=== PATIENT | male | born 1975 | race African-American/Black ===

== ENCOUNTER 2018-09-26 02:05 | Emergency (ER) | payer OTHER ==
[~2018-09-26] VITALS: Ht 185.4 cm; Wt 97.5 kg
[2018-09-26 03:46] LABS: HEMATOCRIT 41.4 % (42.0-52.0); HEMOGLOBIN 14.1 gm/dL (14.0-18.0); MCH 33.2 pg (26.0-34.0); MCV 97.6 fL (80.0-100.0); RBC 4.24 mil/uL (4.50-6.00); RDW 13.7 % (10.5-14.5); WBC 10.4 thou/uL (4.0-11.0)
[2018-09-26 04:01] LABS: CALCIUM 9.2 mg/dL (8.5-10.1); POTASSIUM 4.2 mmol/L (3.5-5.1)
[2018-09-26] MEDS ORDERED: CLEOCIN HCL300 MG PO (05:42)
[2018-09-26 06:22] VITALS: BP 123/85
== END 2018-09-26 06:28 | disposition home or self-care (01) ==
LOC: ER 02:05
PROVIDERS: Emergency Medicine
DX: K04.7 Periapical abscess without sinus (principal); F17.210 Nicotine dependence, cigarettes, uncomplicated

== ENCOUNTER 2019-02-11 04:47 | Inpatient (IN) | payer OTHER ==
[~2019-02-11] VITALS: Ht 185.4 cm; Wt 88.8 kg
[~2019-02-11 04:47] MED LIST: CLEOCIN HCL300 MG PO
[2019-02-11 04:48] VITALS: BP 123/82
[2019-02-11 05:18] LABS: ABSOLUTE NEUTROPHILS 3.3 thou/uL (1.4-8.2); EOSINOPHILS 1.9 % (0.0-3.0); HEMATOCRIT 45.8 % (42.0-52.0); HEMOGLOBIN 15.8 gm/dL (14.0-18.0); LYMPHOCYTES 36.8 % (24.0-44.0); MCH 34.1 pg (26.0-34.0); MCHC 34.6 g/dL (28.0-37.0); MCV 98.6 fL (80.0-100.0); MONOCYTES 11.5 % (1.0-8.0); PLATELET COUNT 249 thou/uL (150-400); POLYS 47.8 % (36.0-66.0); RBC 4.64 mil/uL (4.50-6.00); RDW 16.3 % (10.5-14.5); WBC 6.9 thou/uL (4.0-11.0)
[2019-02-11 06:04] LABS: URINE BLOOD NEGATIVE (Negative); URINE CLARITY CLEAR; URINE GLUCOSE-RANDOM* NEGATIVE (Negative); URINE KETONES TRACE (Negative); URINE LEUKOCYTES-REFLEX NEGATIVE (Negative); URINE NITRITE-REFLEX NEGATIVE (Negative); URINE PROTEIN (DIPSTICK) 2+ (Negative); URINE SPECIFIC GRAVITY 1.025 (1.005-1.035)
[2019-02-11 06:08] LABS: ICTOTEST (BILI CONFIRMATORY) Negative (Negative); URINE BILIRUBIN NEGATIVE (Negative); URINE COLOR DARK YELLOW
[2019-02-11 06:17] LABS: CALCIUM OXALATE 4-10 Moderate /LPF (None Seen); HYALINE CASTS 0-3 Few /LPF (None Seen); MUCUS 0-3 Light strn/LPF (None Seen); SQUAMOUS 0-3 Few /LPF (0-3)
[2019-02-11 06:18] LABS: AMORPHOUS URATES Moderate /LPF (None Seen); BACTERIA-REFLEX 1-9 Few /HPF (None Seen); URINE RBC None Seen /HPF (0-2); URINE WBC-REFLEX 0-5 Rare /HPF (0-5)
[2019-02-11 06:23] LABS: ALBUMIN 2.9 g/dL (3.4-5.0); CALCIUM 7.2 mg/dL (8.5-10.1); CREATININE 0.9 mg/dL (0.7-1.3); TOTAL BILIRUBIN 0.3 mg/dL (<0.1-1.0); TOTAL PROTEIN 6.1 g/dL (6.4-8.2)
[2019-02-11 06:24] LABS: POTASSIUM 2.7 mmol/L (3.5-5.1)
[2019-02-11 08:24] LABS: PHOSPHORUS 2.3 mg/dL (2.5-4.9)
[2019-02-11 08:26] LABS: AMP/METHAMP Negative (Negative); BARBITURATES Negative (Negative); BENZODIAZEPINES Negative (Negative); COCAINE Negative (Negative); METHADONE Negative (Negative); OPIATES Negative (Negative); PCP Negative (Negative)
[2019-02-11 08:53] LABS: FOLIC ACID 3.8 ng/mL (8.6-58.9)
[2019-02-11 09:19] VITALS: BP 116/70
[2019-02-11 09:51] VITALS: BP 109/58
[2019-02-11 10:09] VITALS: BP 127/86
[2019-02-11 15:34] VITALS: BP 145/93
[2019-02-11 16:07] LABS: CREATININE 1.2 mg/dL (0.7-1.3); MAGNESIUM 1.3 mg/dL (1.8-2.4)
[2019-02-11 16:10] LABS: POTASSIUM 3.8 mmol/L (3.5-5.1)
--- NOTE | 2019-02-11 16:48 | NUR ---
pt admiitted from ER for ETOH abuse, N/V , and HYPOKALEMIA,PT is A&OX3, but pt has light tremors, CWA score 5, pt is continuing iv fluid D 5, NS with kcl @ 100ml/hr, pt's nausea and potussium ( lab 3.8 at 1600) have improved, RN has called dr to report lab magnesium 1.3, new order received, GI dr has order , pt will have procedure EGD tomorrow , pt has signed the consent.
[2019-02-11 19:14] VITALS: BP 148/84
[2019-02-12 02:54] VITALS: BP 132/84
--- NOTE | 2019-02-12 04:39 | NUR ---
PATIENT IS ALERT AND ORIENTED. PATIENT IS SBA. PATIENT IS ON ROOM AIR. PATIENT CIWA WAS 4. PATIENT IS NPO FOR EGD TODAY. PATIENTS LBM WAS THE 6TH. PATIENT DENIES PAIN. PATIENT IS RESTING COMFORTABLY IN BED. WCM. PATIENT IS PROGESSING TO GOALS.
[2019-02-12 05:21] LABS: CALCIUM 8.9 mg/dL (8.5-10.1); CREATININE 0.9 mg/dL (0.7-1.3); MAGNESIUM 1.9 mg/dL (1.8-2.4)
[2019-02-12 05:22] LABS: POTASSIUM 4.8 mmol/L (3.5-5.1)
[2019-02-12 07:45] VITALS: BP 128/89
[2019-02-12 11:42] VITALS: BP 128/88
[2019-02-12 12:29] LABS: HEMOGLOBIN 13.4 gm/dL (14.0-18.0); MCH 33.7 pg (26.0-34.0); MCHC 33.5 g/dL (28.0-37.0); MCV 100.4 fL (80.0-100.0); RBC 3.98 mil/uL (4.50-6.00); RDW 15.9 % (10.5-14.5); WBC 5.8 thou/uL (4.0-11.0)
[2019-02-12] MEDS ORDERED: VITAMIN B-1100 M2 PO ×2 (13:46→14:23)
[2019-02-12] MEDS ORDERED: PROTONIX40 M1 PO ×2 (13:46→14:23)
[2019-02-12] MEDS ORDERED: FOLIC ACID1 MG PO ×2 (13:46→14:23)
--- NOTE | 2019-02-12 13:49 | NUR ---
Assess due to high nutrition screening risk for unintentional wt loss and poor appetite. + hx etoh use and occasional cocaine use. Admit with hematemesis related to etoh consumption and wt loss 10 lb over 2 weeks. Pt voicing desire to become sober, has resources provided. Ate well today. On vitamin, and thiamine supplementation. Low nutrition risk
--- NOTE | 2019-02-12 15:23 | NUR ---
INITIAL ASSESSMENT: Received consult for ETOH withdrawal plan. SHAYNE reviewed chart and spoke with nursing and attending physician. Pt was admitted from home due to nausea/vomiting. Pt with hx of ETOH abuse. Pt had EGD earlier today and should discharge home later today. Psych consulted to evaluate pt prior to discharge. SW met with pt at bedside. Introduced role of SW. Pt is alert/orientated x 4. Pt reports he lives at home in an apt. Pt's sister will be moving in with him. Pt with hx of ETOH abuse. Pt states he was at [facility] [place] for detox in July and the moved to the residential care at [facility] [place]. Pt states phase 1 is a 90-day residential program. Pt states he is ready for phase 2 which is a sober living program in [place]. Pt states his last drink was on Tuesday. Pt reports he drank a fifth of vicky. Pt states he is motivated to work on his sobriety and will be working on phase 2 when he is discharged. SHAYNE provided pt with [facility] resource guide and prescription discount card as pt does not have health insurance. Pt does not qualify for Medicaid. [facility] regional sales representative met with pt earlier today. Pt will discharge home when medically stable. SHAYNE is following to assist as needed with discharge planning,
[2019-02-12 16:15] VITALS: BP 124/87
--- NOTE | 2019-02-12 18:26 | NUR ---
EGD today. Discharge pending psych consult. IvF running. CIWA every four hours.
[2019-02-12 18:56] VITALS: BP 124/87
--- NOTE | 2019-02-13 17:06 | PATH ---
[facility] [address] [place] [address] PATHOLOGY RPT PROCEDURE Name: NATANAEL CRISOSTOMO Room #: 361-P DIS IN M.R.#: [id number] Admission: 02/11/19 Date of : 71 Discharge: 02/12/19 Report #: [id number] Path Case #: [id number] [facility] Accession Number: [id number] . 01 Material submitted: . stomach - BX GASTRITIS . 01 Clinical history: . Nausea/vomiting Gastritis, esophagitis, hiatus hernia Rule out H. pylori . 02 Diagnosis: Gastric mucosa, gastritis rule out H. pylori, endoscopic biopsy: - Moderate reactive gastropathy. - Negative for intestinal metaplasia or atrophy. - Negative for Helicobacter pylori (properly controlled immunohistochemical stain performed). 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 02 Electronically signed: . Hannah Taylor MD, Pathologist NPI- [id number] . 01 Gross description: . The specimen is received in formalin, labeled "Natanael Crisostomo, BX gastritis" and consists of 4 fragments of pink-rachel tissue measuring between 0.3 x 0.1 cm and 0.3 x 0.3 x 0.2 cm which are entirely submitted in A1. (SDY; 02/12/2019) SYU/SYU 02/12/2019 1423 Local . 02 Pathologist provided ICD-10: K31.9 . 02 CPT . 418966, C64137 Specimen Comment: A courtesy copy of this report has been sent to Specimen Comment: [phone], . Specimen Comment: Report sent to / DR SMALL Performed at: 01 [facility] [address] [id number] MD Patricio Villar MD Phone: [phone] Performed at: [address] [facility] [address] [place] [address] PATHOLOGY RPT PROCEDURE Name: NATANAEL CRISOSTOMO Room #: 361-P DIS IN M.R.#: [id number] Admission: 02/11/19 Date of : 71 Discharge: 02/12/19 Report #: [id number] Path Case #: [id number] [address] [place] [id number] MD Hannah Taylor MD Phone: [phone]
--- NOTE | 2019-02-13 18:19 | P ---
[facility] [place] [address] PROCEDURE REPORT Name: REBECCA CRISOSTOMO Room #: 361-P [facility] IN M.R.#: [id number] Admission: 02/11/19 Attend Phys: Jonel Cortes MD Discharge: 02/12/19 Date of : 71 Report #: [id number] THIS REPORT FOR: //name// CC: [facility] physician/PCP Jonel Cortes DATE OF SERVICE: 02/12/2019 INPATIENT UPPER ENDOSCOPY REPORT PREOPERATIVE DIAGNOSES: Alcohol abuse and hematemesis. POSTOPERATIVE DIAGNOSES: 1. Grade C esophagitis. 2. A 2-3 cm sliding-type hiatus hernia. 3. Diffuse gastritis, nonhemorrhagic. MEDICATIONS: Deep sedation with propofol per Anesthesia. SPECIMEN: Biopsies of gastritis. ESTIMATED BLOOD LOSS: 3 mL. PROCEDURE: EGD with biopsy. FINDINGS: Prior to propofol sedation, procedure of upper endoscopy discussed with the patient as well as potential risks and its complications. He indicates he understands and desires to proceed. DESCRIPTION OF PROCEDURE: With the patient in left lateral decubitus position, the Olympus video endoscope was inserted in the cervical esophagus under direct vision without difficulty. Examination of this organ through its entire length revealed normal esophageal mucosa down the squamocolumnar junction. Examination of the squamocolumnar junction revealed it to be eroded. Deep ulcers were not seen. The erosive changes were primarily at the gastroesophageal junction. No strictures or masses were seen. In addition, there was a 2-3 cm sliding-type hiatus hernia. The mucosa in the hernia was unremarkable. The scope was advanced fully into the stomach, was examined on end view as well as retroflexed views. There was a pattern of a diffuse gastritis. No ulcers, erosions, or bleeding lesions were seen. Upon retroflexion, no other abnormalities were seen other than gastritis. The patient has a history of heavy alcohol abuse and actually the gastritis is fairly minimal with regards to his significant history. Again, no ulcers or bleeding lesions were seen. The pylorus was unremarkable. Duodenal bulb and postbulbar duodenal sweep were inspected and noted to be unremarkable. At that point, the scope was slowly withdrawn and careful circumferential views were obtained. The patient tolerated the [facility] [address] [place] [address] PROCEDURE REPORT Name: REBECCA CRISOSTOMO Room #: 361-P DIS IN M.R.#: [id number] Admission: 02/11/19 Attend Phys: Jonel Cortes MD Discharge: 02/12/19 Date of : 71 Report #: [id number] procedure well. Biopsies obtained of the gastritis. DISPOSITION: The patient with alcohol abuse and hematemesis. He does have esophagitis. I believe the esophagitis is likely secondary to vomiting. We will treat with a PPI at this point in time. As for the likelihood of recurrent gastrointestinal bleeding, the risk of continued bleeding is very low. Discontinuation of alcohol would obviously be very important with regards to his esophagitis and gastritis. <ELECTRONICALLY SIGNED> By: Juan Moreira MD 02/13/19 1819 [id number] Juan Moreira MD /nt
== END 2019-02-12 19:20 | disposition home or self-care (01) | DRG 379 ==
LOC: ER 04:47 → EROBS 07:08 → 3W 07:08
PROVIDERS: Emergency Medicine; Internal Medicine; ADMIT Internal Medicine
PROC: 0DB68ZX Excision of Stomach, Via Natural or Artificial Opening Endoscopic, Diagnostic (ICD-10-PCS; principal; 2019-02-12)
DX: K29.21 Alcoholic gastritis with bleeding (principal); E87.6 Hypokalemia; K20.9 Esophagitis, unspecified; K44.9 Diaphragmatic hernia without obstruction or gangrene; F10.20 Alcohol dependence, uncomplicated; F14.10 Cocaine abuse, uncomplicated; F17.210 Nicotine dependence, cigarettes, uncomplicated; Z79.899 Other long term (current) drug therapy; Z23 Encounter for immunization
CPT/HCPCS: 10879; 62110; 62900; 70005